=== PATIENT | female | born 1955 | race American Indian/Alaskan Native ===

== ENCOUNTER 2017-07-21 21:43 | Inpatient (IN) | payer OTHER ==
--- NOTE | 2017-07-21 22:17 | EDM.PDOC ---
ED HPI GENERAL MEDICAL PROBLEM - General Chief Complaint: Neuro Symptoms/Deficits Stated Complaint: PITO ROJAS Time Seen by Provider: 07/21/17 22:06 Source of Information: Reports: EMS, Family History Limitations: Reports: Altered Mental Status - History of Present Illness INITIAL COMMENTS - FREE TEXT/NARRATIVE: This is a 62-year-old female. Apparently the ambulance was called because the patient became unresponsive to her family. The history is very sketchy and if I understand correctly the patient was having pain today she has fibromyalgia and she is on hydrocodone and Lyrica and she was taking her medicines today according to the EMS crew and then this evening she became unresponsive and they thought she was having a stroke. Apparently they called a helicopter to come and get her but it was easier for them to bring her to us and to have a helicopter transport her. The patient is not able to give any history whatsoever. She will open her eyes, localizes to pain and moans. With a GCS of 11. She has an open airway and is breathing without difficulty. Her breath sounds are equal. She moves her head without difficulty. 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 And she will flex her legs to pain and roll in the bed to get away from the pain. He did give her Narcan when she arrived and it seemed to wake her up some but not completely. We also checked a blood sugar was 205. Pulse ox when she arrived without oxygen has been running 95-98% on room air. Family history arrived the indicated. She is an insulin-dependent diabetic. She has a lot of nerve pain due to her diabetes as well. She also has a history of COPD and she still smokes. Apparently this morning she was more coherent with the family and they were able to ask her questions and she would answer. But over the last 3 hours the granddaughter states she has been less interactive and been moaning the entire time. She did eat today and she did go on a drive with the granddaughter and was interactive during that time but lethargic. - Related Data Allergies Allergy/AdvReac Type Severity Reaction Status Date / Time No Known Allergies Allergy Verified 07/21/17 22:06 Home Meds: Home Meds DULoxetine HCl [Duloxetine HCl] 60 mg PO DAILY 07/21/17 [History] Erythromycin Base [Erythromycin 0.5% Ophth Oint] 1 dose EYERT BEDTIME 07/21/17 [ History] Hydrocodone/Acetaminophen [Hydrocodon-Acetaminophen 5-325] 1 tab PO Q6HR PRN [History] Insulin Aspart [Novolog Flexpen] 07/21/17 [History] Insulin Detemir [Levemir Flextouch] 07/21/17 [History] Lisinopril [Prinivil] 2.5 mg PO DAILY 07/21/17 [History] Pregabalin [Lyrica] 300 mg PO DAILY 07/21/17 [History] hydrOXYzine Pamoate [Hydroxyzine Pamoate] 50 mg PO BEDTIME 07/21/17 [History] Past Medical History - Past Health History Medical/Surgical History: Denies Medical/Surgical History Gastrointestinal History: Reports: Cholelithiasis 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: Endocrine/Metabolic History: Reports: Diabetes, Type II Other Dermatologic History: Allergy to sun - Past Surgical History GI Surgical History: Reports: Cholecystectomy Social & Family History - Tobacco Use Smoking Status *Q: Current Every Day Smoker Years of Tobacco use: 25 Packs/Tins Daily: 1 - Caffeine Use Caffeine Use: Reports: Coffee - Recreational Drug Use Recreational Drug Use: No ED ROS GENERAL - Review of Systems Review Of Systems: Unable To Obtain ED EXAM, NEURO - Physical Exam Exam: See Below Exam Limited By: Altered Mental Status General Appearance: Obtunded Eye Exam: Bilateral Eye: Other (2 pills are enlarged and they're sluggishly reactive, the right cornea has a pterygium noted, she will move away from me touching her face by turning her face) Ears: Normal External Exam, Normal Canal, Normal TMs Nose: Normal Inspection Throat/Mouth: Normal Inspection, No Airway Compromise, Other (She will not open her mouth to command) Head Exam: Normocephalic Neck: Supple, Other (She moves her neck spontaneously does not appear to have any tenderness or avoidance of palpation of her neck) Respiratory/Chest: No Respiratory Distress, Lungs Clear, Normal Breath Sounds Cardiovascular: Regular Rate, Rhythm, No Murmur GI/Abdominal: Soft, Non-Tender Neurological: Other (GCS is 11) Back Exam: Normal Inspection Extremities: Normal Inspection, Other (The patient is now sitting up and the family is here interacting with her she is moving all 4 extremities equally both her arms and her legs that she sitting up) Psychiatric: Other (Patient appears to be restless a little bit agitated and she moans) Skin Exam: Warm, Dry EKG INTERPRETATION EKG Date: 07/21/17 Time: 10:03 EKG Interpretation Comments: EKG shows a sinus rhythm there is no acute ST or T wave changes there is no suggestion of ischemia noted she does have a wandering baseline however Course - Vital Signs Last Recorded V/S: Last Vital Signs Temp 98.5 F 07/21/17 21:56 Pulse 88 07/21/17 21:56 Resp 18 07/21/17 21:56 BP 142/88 H 07/21/17 21:56 Pulse Ox 95 07/21/17 21:56 - Orders/Labs/Meds Orders: Active Orders 24 hr Category Date Time Status EKG 12 Lead [EKG Documentation Completion] [RC] STAT Care 07/21/17 22:11 Active Chest 2V [CR] Stat Exams 07/21/17 22:09 Taken Head wo Cont [CT] Stat Exams 07/21/17 22:04 Taken CULTURE BLOOD [BC] Stat Lab 07/21/17 22:53 Received CULTURE BLOOD [BC] Stat Lab 07/21/17 22:59 Received Blood Culture x2 Reflex Set [OM.PC] Stat Oth 07/21/17 22:34 Ordered Labs: Laboratory Tests 07/21/17 07/21/17 07/21/17 Range/Units 22:04 22:04 22:04 WBC 7.43 (3.98-10.04) K/mm3 RBC 4.13 (3.98-5.22) M/mm3 Hgb 12.5 (11.2-15.7) gm/L Hct 37.4 (34.1-44.9) % MCV 90.6 (79.4-94.8) fl MCH 30.3 (25.6-32.2) pg MCHC 33.4 (32.2-35.5) g/dl RDW Std Deviation 42.9 (36.4-46.3) fL Plt Count 204 (182-369) K/mm3 MPV 9.6 (9.4-12.3) fl Neut % (Auto) 73.7 H (34.0-71.1) % Lymph % (Auto) 18.4 L (19.3-51.7) % [place] % (Auto) 5.2 (4.7-12.5) % Eos % (Auto) 1.9 (0.7-5.8) Baso % (Auto) 0.7 (0.1-1.2) % Neut # (Auto) 5.47 (1.56-6.13) K/mm3 Lymph # (Auto) 1.37 (1.18-3.74) K/mm3 [place] # (Auto) 0.39 H (0.24-0.36) K/mm3 Eos # (Auto) 0.14 (0.04-0.36) K/mm3 Baso # (Auto) 0.05 (0.01-0.08) K/mm3 PT 9.9 (8.0-13.0) SECONDS INR 0.91 Puncture Site ABG pH (7.35-7.45) ABG pCO2 (35.0-45.0) mmHg ABG pO2 (80.0-100.0) mmHg ABG HCO3 (22.0-26.0) meq/L ABG O2 Saturation (96.0-97.0) % ABG Base Excess (-2-2.0) A-a Gradient mmHg O2 Delivery Device FiO2 (21.00-100.00) % Sodium 143 (136-145) mEq/L Potassium 4.0 (3.5-5.1) mEq/L Chloride 109 H (98-107) mEq/L Carbon Dioxide 24 (21-32) mEq/L Anion Gap 14.0 (5-15) BUN 11 (7-18) mg/dL Creatinine 0.9 (0.55-1.02) mg/dL Est Cr Clr Drug Dosing TNP Estimated GFR (MDRD) > 60 (>60) mL/min BUN/Creatinine Ratio 12.2 L (14-18) Glucose 227 H (80-115) mg/dL POC Glucose (80-115) mg/dL Lactic Acid (0.4-2.0) mmol/L Calcium 9.1 (8.5-10.1) mg/dL Total Bilirubin 0.3 (0.2-1.0) mg/dL AST 27 (15-37) U/L ALT 30 (14-59) U/L Alkaline Phosphatase 159 H (46-116) U/L Troponin I (0.00-0.056) ng/mL C-Reactive Protein (<1.0) mg/dL Total Protein 8.5 H (6.4-8.2) g/dl Albumin 3.3 L (3.4-5.0) g/dl Globulin 5.2 gm/dL Albumin/Globulin Ratio 0.6 L (1-2) Urine Color (Yellow) Urine Appearance (Clear) Urine pH (5.0-8.0) Ur Specific Nice (1.005-1.030) Urine Protein (Negative) Urine Glucose (UA) (Negative) Urine Ketones (Negative) Urine Occult Blood (Negative) Urine Nitrite (Negative) Urine Bilirubin (Negative) Urine Urobilinogen (0.2-1.0) Ur Leukocyte Esterase (Negative) Urine RBC (0-5) /hpf Urine WBC (0-5) /hpf Ur Epithelial Cells (0-5) /hpf Urine Bacteria (FEW) /hpf Urine Mucus (FEW) /hpf Urine Opiates Screen (NEGATIVE) Ur Buprenorphine Scrn (NEGATIVE) Ur Oxycodone Screen (NEGATIVE) Urine Methadone Screen (NEGATIVE) Ur Propoxyphene Screen (NEGATIVE) Ur Barbiturates Screen (NEGATIVE) Ur Tricyclics Screen (NEGATIVE) Ur Phencyclidine Scrn (NEGATIVE) Ur Amphetamine Screen (NEGATIVE) U Methamphetamines Scrn (NEGATIVE) U Benzodiazepines Scrn (NEGATIVE) U Cocaine Metab Screen (NEGATIVE) U Marijuana (THC) Screen (NEGATIVE) 07/21/17 07/21/17 07/21/17 Range/Units 22:04 22:04 22:05 WBC (3.98-10.04) K/mm3 RBC (3.98-5.22) M/mm3 Hgb (11.2-15.7) gm/L Hct (34.1-44.9) % MCV (79.4-94.8) fl MCH (25.6-32.2) pg MCHC (32.2-35.5) g/dl RDW Std Deviation (36.4-46.3) fL Plt Count (182-369) K/mm3 MPV (9.4-12.3) fl Neut % (Auto) (34.0-71.1) % Lymph % (Auto) (19.3-51.7) % [place] % (Auto) (4.7-12.5) % Eos % (Auto) (0.7-5.8) Baso % (Auto) (0.1-1.2) % Neut # (Auto) (1.56-6.13) K/mm3 Lymph # (Auto) (1.18-3.74) K/mm3 [place] # (Auto) (0.24-0.36) K/mm3 Eos # (Auto) (0.04-0.36) K/mm3 Baso # (Auto) (0.01-0.08) K/mm3 PT (8.0-13.0) SECONDS INR Puncture Site ABG pH (7.35-7.45) ABG pCO2 (35.0-45.0) mmHg ABG pO2 (80.0-100.0) mmHg ABG HCO3 (22.0-26.0) meq/L ABG O2 Saturation (96.0-97.0) % ABG Base Excess (-2-2.0) A-a Gradient mmHg O2 Delivery Device FiO2 (21.00-100.00) % Sodium (136-145) mEq/L Potassium (3.5-5.1) mEq/L Chloride (98-107) mEq/L Carbon Dioxide (21-32) mEq/L Anion Gap (5-15) BUN (7-18) mg/dL Creatinine (0.55-1.02) mg/dL Est Cr Clr Drug Dosing Estimated GFR (MDRD) (>60) mL/min BUN/Creatinine Ratio (14-18) Glucose (80-115) mg/dL POC Glucose 205 H (80-115) mg/dL Lactic Acid (0.4-2.0) mmol/L Calcium (8.5-10.1) mg/dL Total Bilirubin (0.2-1.0) mg/dL AST (15-37) U/L ALT (14-59) U/L Alkaline Phosphatase (46-116) U/L Troponin I < 0.017 (0.00-0.056) ng/mL C-Reactive Protein 2.0 H* (<1.0) mg/dL Total Protein (6.4-8.2) g/dl Albumin (3.4-5.0) g/dl Globulin gm/dL Albumin/Globulin Ratio (1-2) Urine Color (Yellow) Urine Appearance (Clear) Urine pH (5.0-8.0) Ur Specific Nice (1.005-1.030) Urine Protein (Negative) Urine Glucose (UA) (Negative) Urine Ketones (Negative) Urine Occult Blood (Negative) Urine Nitrite (Negative) Urine Bilirubin (Negative) Urine Urobilinogen (0.2-1.0) Ur Leukocyte Esterase (Negative) Urine RBC (0-5) /hpf Urine WBC (0-5) /hpf Ur Epithelial Cells (0-5) /hpf Urine Bacteria (FEW) /hpf Urine Mucus (FEW) /hpf Urine Opiates Screen (NEGATIVE) Ur Buprenorphine Scrn (NEGATIVE) Ur Oxycodone Screen (NEGATIVE) Urine Methadone Screen (NEGATIVE) Ur Propoxyphene Screen (NEGATIVE) Ur Barbiturates Screen (NEGATIVE) Ur Tricyclics Screen (NEGATIVE) Ur Phencyclidine Scrn (NEGATIVE) Ur Amphetamine Screen (NEGATIVE) U Methamphetamines Scrn (NEGATIVE) U Benzodiazepines Scrn (NEGATIVE) U Cocaine Metab Screen (NEGATIVE) U Marijuana (THC) Screen (NEGATIVE) 07/21/17 07/21/17 07/21/17 Range/Units 22:35 22:53 23:00 WBC (3.98-10.04) K/mm3 RBC (3.98-5.22) M/mm3 Hgb (11.2-15.7) gm/L Hct (34.1-44.9) % MCV (79.4-94.8) fl MCH (25.6-32.2) pg MCHC (32.2-35.5) g/dl RDW Std Deviation (36.4-46.3) fL Plt Count (182-369) K/mm3 MPV (9.4-12.3) fl Neut % (Auto) (34.0-71.1) % Lymph % (Auto) (19.3-51.7) % [place] % (Auto) (4.7-12.5) % Eos % (Auto) (0.7-5.8) Baso % (Auto) (0.1-1.2) % Neut # (Auto) (1.56-6.13) K/mm3 Lymph # (Auto) (1.18-3.74) K/mm3 [place] # (Auto) (0.24-0.36) K/mm3 Eos # (Auto) (0.04-0.36) K/mm3 Baso # (Auto) (0.01-0.08) K/mm3 PT (8.0-13.0) SECONDS INR Puncture Site Rt brachial ABG pH 7.35 (7.35-7.45) ABG pCO2 43.6 (35.0-45.0) mmHg ABG pO2 66.0 L (80.0-100.0) mmHg ABG HCO3 23.7 (22.0-26.0) meq/L ABG O2 Saturation 96.1 (96.0-97.0) % ABG Base Excess -1.4 (-2-2.0) A-a Gradient 14 mmHg O2 Delivery Device Room air FiO2 21.00 (21.00-100.00) % Sodium (136-145) mEq/L Potassium (3.5-5.1) mEq/L Chloride (98-107) mEq/L Carbon Dioxide (21-32) mEq/L Anion Gap (5-15) BUN (7-18) mg/dL Creatinine (0.55-1.02) mg/dL Est Cr Clr Drug Dosing Estimated GFR (MDRD) (>60) mL/min BUN/Creatinine Ratio (14-18) Glucose (80-115) mg/dL POC Glucose 224 H (80-115) mg/dL Lactic Acid 0.9 (0.4-2.0) mmol/L Calcium (8.5-10.1) mg/dL Total Bilirubin (0.2-1.0) mg/dL AST (15-37) U/L ALT (14-59) U/L Alkaline Phosphatase (46-116) U/L Troponin I (0.00-0.056) ng/mL C-Reactive Protein (<1.0) mg/dL Total Protein (6.4-8.2) g/dl Albumin (3.4-5.0) g/dl Globulin gm/dL Albumin/Globulin Ratio (1-2) Urine Color (Yellow) Urine Appearance (Clear) Urine pH (5.0-8.0) Ur Specific Nice (1.005-1.030) Urine Protein (Negative) Urine Glucose (UA) (Negative) Urine Ketones (Negative) Urine Occult Blood (Negative) Urine Nitrite (Negative) Urine Bilirubin (Negative) Urine Urobilinogen (0.2-1.0) Ur Leukocyte Esterase (Negative) Urine RBC (0-5) /hpf Urine WBC (0-5) /hpf Ur Epithelial Cells (0-5) /hpf Urine Bacteria (FEW) /hpf Urine Mucus (FEW) /hpf Urine Opiates Screen (NEGATIVE) Ur Buprenorphine Scrn (NEGATIVE) Ur Oxycodone Screen (NEGATIVE) Urine Methadone Screen (NEGATIVE) Ur Propoxyphene Screen (NEGATIVE) Ur Barbiturates Screen (NEGATIVE) Ur Tricyclics Screen (NEGATIVE) Ur Phencyclidine Scrn (NEGATIVE) Ur Amphetamine Screen (NEGATIVE) U Methamphetamines Scrn (NEGATIVE) U Benzodiazepines Scrn (NEGATIVE) U Cocaine Metab Screen (NEGATIVE) U Marijuana (THC) Screen (NEGATIVE) 07/21/17 07/21/17 Range/Units 23:20 23:20 WBC (3.98-10.04) K/mm3 RBC (3.98-5.22) M/mm3 Hgb (11.2-15.7) gm/L Hct (34.1-44.9) % MCV (79.4-94.8) fl MCH (25.6-32.2) pg MCHC (32.2-35.5) g/dl RDW Std Deviation (36.4-46.3) fL Plt Count (182-369) K/mm3 MPV (9.4-12.3) fl Neut % (Auto) (34.0-71.1) % Lymph % (Auto) (19.3-51.7) % [place] % (Auto) (4.7-12.5) % Eos % (Auto) (0.7-5.8) Baso % (Auto) (0.1-1.2) % Neut # (Auto) (1.56-6.13) K/mm3 Lymph # (Auto) (1.18-3.74) K/mm3 [place] # (Auto) (0.24-0.36) K/mm3 Eos # (Auto) (0.04-0.36) K/mm3 Baso # (Auto) (0.01-0.08) K/mm3 PT (8.0-13.0) SECONDS INR Puncture Site ABG pH (7.35-7.45) ABG pCO2 (35.0-45.0) mmHg ABG pO2 (80.0-100.0) mmHg ABG HCO3 (22.0-26.0) meq/L ABG O2 Saturation (96.0-97.0) % ABG Base Excess (-2-2.0) A-a Gradient mmHg O2 Delivery Device FiO2 (21.00-100.00) % Sodium (136-145) mEq/L Potassium (3.5-5.1) mEq/L Chloride (98-107) mEq/L Carbon Dioxide (21-32) mEq/L Anion Gap (5-15) BUN (7-18) mg/dL Creatinine (0.55-1.02) mg/dL Est Cr Clr Drug Dosing Estimated GFR (MDRD) (>60) mL/min BUN/Creatinine Ratio (14-18) Glucose (80-115) mg/dL POC Glucose (80-115) mg/dL Lactic Acid (0.4-2.0) mmol/L Calcium (8.5-10.1) mg/dL Total Bilirubin (0.2-1.0) mg/dL AST (15-37) U/L ALT (14-59) U/L Alkaline Phosphatase (46-116) U/L Troponin I (0.00-0.056) ng/mL C-Reactive Protein (<1.0) mg/dL Total Protein (6.4-8.2) g/dl Albumin (3.4-5.0) g/dl Globulin gm/dL Albumin/Globulin Ratio (1-2) Urine Color Yellow (Yellow) Urine Appearance Clear (Clear) Urine pH 7.0 (5.0-8.0) Ur Specific Nice 1.020 (1.005-1.030) Urine Protein 2+ H (Negative) Urine Glucose (UA) 2+ H (Negative) Urine Ketones Negative (Negative) Urine Occult Blood Negative (Negative) Urine Nitrite Negative (Negative) Urine Bilirubin Negative (Negative) Urine Urobilinogen 1.0 (0.2-1.0) Ur Leukocyte Esterase Negative (Negative) Urine RBC Not seen (0-5) /hpf Urine WBC 0-5 (0-5) /hpf Ur Epithelial Cells 0-5 (0-5) /hpf Urine Bacteria Not seen (FEW) /hpf Urine Mucus Not seen (FEW) /hpf Urine Opiates Screen Negative (NEGATIVE) Ur Buprenorphine Scrn Negative (NEGATIVE) Ur Oxycodone Screen Negative (NEGATIVE) Urine Methadone Screen Negative (NEGATIVE) Ur Propoxyphene Screen Negative (NEGATIVE) Ur Barbiturates Screen Negative (NEGATIVE) Ur Tricyclics Screen Negative (NEGATIVE) Ur Phencyclidine Scrn Negative (NEGATIVE) Ur Amphetamine Screen Negative (NEGATIVE) U Methamphetamines Scrn Negative (NEGATIVE) U Benzodiazepines Scrn Presumptive positive H (NEGATIVE) U Cocaine Metab Screen Negative (NEGATIVE) U Marijuana (THC) Screen Negative (NEGATIVE) Meds: Medications Discontinued Medications Generic Name Dose Route Start Last Admin Trade Name Freq PRN Reason Stop Dose Admin Naloxone HCl 0.1 mg 07/21/17 22:43 07/21/17 22:55 Narcan IVPUSH 07/21/17 22:44 Not Given ONETIME ONE Naloxone HCl 0.4 mg 07/21/17 21:48 07/21/17 21:48 Narcan IVPUSH 07/21/17 21:49 0.4 mg ONETIME ONE Administration Ondansetron HCl Confirm 07/21/17 22:25 07/21/17 22:56 Zofran Administered 07/21/17 22:26 Not Given Dose 4 mg .ROUTE .STK-MED ONE Ondansetron HCl 4 mg 07/21/17 22:43 07/21/17 22:22 Zofran IVPUSH 07/21/17 22:44 4 mg ONETIME ONE Administration - Radiology Interpretation CT Results Date: 07/21/17 (CT scan shows no intracranial mass effect no hemorrhage and no acute infarct) - Re-Assessments/Exams Free Text/Narrative Re-Assessment/Exam: 07/21/17 23:32 The patient is resting peacefully. He was noted that her blood gas on room air showed a PO2 of 66 with O2 sat of 96 therefore we put her on a couple liters of oxygen by nasal cannula. I spoke to the granddaughter regarding our findings thus far and she does not appear to have any pneumonia. She is about the same responsiveness as she was when she came in but she is not agitated but resting peacefully. My concern is whether or not she might have overdosed on the Lyrica which is supportive therapy only. She does exhibit the loss of coordination the drowsiness or lethargy the moments of unresponsiveness she's not had any diarrhea and I cannot tell about her double vision though at times while look at her eyes the do appear to have some disconjugate gaze. Other than moaning the patient has not tried to speak so I cannot tell about the dysarthria that occurs with gabapentin overdose. 07/22/17 00:10 I spoke to the family regarding the toxicology report and the rest of the lab work. It is my impression that her altered mental status could be related to the benzodiazepines found in her urine drug screen as well as the Lyrica. I did speak to Dr. Alfred about the patient's presentation and lab work and she will admit the patient for further evaluation and treatment. We will place the patient on MedSurg telemetry with neuro checks. 07/22/17 00:22 After talking it over the family states the patient doesn't take benzodiazepines even though was found in her urine drug screen. This leads me to believe that the family doesn't know very well what meds she actually takes her doesn't. I indicated to them that we will put the patient in the hospital to monitor her and hopefully will determine what is the reason for her unresponsiveness. Departure - Departure Time of Disposition: 00:12 Disposition: Admitted As Inpatient 65 Condition: Serious Clinical Impression: Insulin dependent diabetes mellitus, Neuropathy, Chemical dependency Altered mental status, unspecified Qualifiers: Altered mental status type: somnolence Qualified Code(s): R40.0 - Somnolence COPD (chronic obstructive pulmonary disease) Qualifiers: COPD type: emphysema Emphysema type: unspecified Qualified Code(s): J43.9 - Emphysema, unspecified - Discharge Information Referrals: PCP,None [Primary Care Provider] - Forms: ED Department Discharge Additional Instructions: I spoke to Dr. Alfred regarding the patient and she will admit the patient to MedSurg telemetry with neuro checks ED Communication - ED Communication Date/Time Date: 07/22/17 Time Called: 00:15 - Discussed Case With (1) Discussed Case With (1): Admitting Provider Person/s Notified (1): Ale Alfred (She will admit the patient) - My Orders Last 24 Hours: My Active Orders 07/21/17 22:04 Head wo Cont [CT] Stat 07/21/17 22:09 Chest 2V [CR] Stat 07/21/17 22:11 EKG 12 Lead [EKG Documentation Completion] [RC] STAT 07/21/17 22:34 Blood Culture x2 Reflex Set [OM.PC] Stat 07/21/17 22:53 CULTURE BLOOD [BC] Stat 07/21/17 22:59 CULTURE BLOOD [BC] Stat - Assessment/Plan Last 24 Hours: My Active Orders 07/21/17 22:04 Head wo Cont [CT] Stat 07/21/17 22:09 Chest 2V [CR] Stat 07/21/17 22:11 EKG 12 Lead [EKG Documentation Completion] [RC] STAT 07/21/17 22:34 Blood Culture x2 Reflex Set [OM.PC] Stat 07/21/17 22:53 CULTURE BLOOD [BC] Stat 07/21/17 22:59 CULTURE BLOOD [BC] Stat
[2017-07-21] MEDS ORDERED: Ondansetron 4 MG/2 ML SDV ONE (22:25)
[2017-07-21] MEDS ORDERED: Naloxone 2 MG/2 ML Syringe IVPUSH ONE (22:43)
[2017-07-21] MEDS ORDERED: Ondansetron 4 MG/2 ML SDV IVPUSH ONE (22:43)
[2017-07-22] MEDS: Insulin Aspart 100 Units/ML 3 ML Pen SUBCUT SCH ×5 (05:28→23:09)
[2017-07-22] MEDS: Sodium Chloride 0.9% 1,000 ML IV SCH ×2 (05:30→18:49)
--- NOTE | 2017-07-22 06:46 | PCM.HP ---
H&P History of Present Illness - General Date of Service: 07/22/17 Admit Problem/Dx: Admission Diagnosis/Problem Admission Diagnosis/Problem Altered mental status Source of Information: Provider History Limitations: Reports: No Limitations - History of Present Illness Initial Comments - Free Text/Narative: 62 year old female who looks 30 years older than her age presents with mental status change. 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 Her family had a concern that she may have had a CVA, she was brought into the ED because of unresponsiveness. The evaluation in the ED revealed a GCS 11, narcan was given with some improvement of MS. Laboratory results are remarkable for presumptive positive for benzodiazepine which is not on her list of medications. Reportedly she takes above and beyond the recommend dose of Lyrica for neuropathy. BS have been elevated, but are not profoundly high; BS on presentation to the ED 205. She is hemodynamically stable, and will be admitted to MS telemetry for additional evaluation as well as treatment as indicated. Onset of Symptoms: Reports: Unknown/Unsure Duration of Symptoms: Reports: Hour(s):, Getting Worse Location: Reports: Generalized Quality: Reports: Other (unknown) Severity: Moderate Improves with: Reports: None Worsens with: Reports: None Context: Reports: Other (unknown) Associated Symptoms: Reports: Confusion, Weakness - Related Data Allergies/Adverse Reactions: Allergies Allergy/AdvReac Type Severity Reaction Status Date / Time No Known Allergies Allergy Verified 07/21/17 22:06 Home Medications: Home Meds DULoxetine HCl [Duloxetine HCl] 60 mg PO DAILY 07/21/17 [History] Erythromycin Base [Erythromycin 0.5% Ophth Oint] 1 dose EYERT BEDTIME 07/21/17 [ History] Hydrocodone/Acetaminophen [Hydrocodon-Acetaminophen 5-325] 1 tab PO Q6HR PRN [History] Insulin Aspart [Novolog Flexpen] 07/21/17 [History] Insulin Detemir [Levemir Flextouch] 07/21/17 [History] Lisinopril [Prinivil] 2.5 mg PO DAILY 07/21/17 [History] Pregabalin [Lyrica] 300 mg PO DAILY 07/21/17 [History] hydrOXYzine Pamoate [Hydroxyzine Pamoate] 50 mg PO BEDTIME 07/21/17 [History] Past Medical History - Past Health History Medical/Surgical History: Denies Medical/Surgical History Gastrointestinal History: Reports: Cholelithiasis 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 several scars to other healed skin issues. - Past Surgical History Cardiovascular Surgical History: Reports: None GI Surgical History: Reports: Cholecystectomy Female Surgical History: Reports: None Endocrine Surgical History: Reports: None Dermatological Surgical History: Reports: None Social & Family History - Family History Family Medical History: Unobtainable - Tobacco Use Smoking Status *Q: Current Every Day Smoker Years of Tobacco use: 20 Packs/Tins Daily: 1 Used Tobacco, but Quit: No Second Hand Smoke Exposure: No - Caffeine Use Caffeine Use: Reports: Other Caffeine Use Comment: unknown - Recreational Drug Use Recreational Drug Use: No H&P Review of Systems - Review of Systems: Review Of Systems: Unable To Obtain Exam - Exam Exam: See Below - Vital Signs Vital Signs: Last Vital Signs Temp 36.6 C 07/22/17 03:53 Pulse 91 07/22/17 03:53 Resp 18 07/22/17 03:53 BP 125/77 07/22/17 03:53 Pulse Ox 100 07/22/17 03:53 Weight: 72.802 kg - Exam Quality Assessment: Supplemental Oxygen General: Lethargic HEENT: Conjunctiva Clear, Pupils Equal, Pupils Reactive, PERRLA Lungs: Normal Respiratory Effort, Decreased Breath Sounds Cardiovascular: Regular Rate, Regular Rhythm GI/Abdominal Exam: Normal Bowel Sounds, Soft, Non-Tender, No Organomegaly, No Distention (Female) Exam: Deferred Rectal (Female) Exam: Deferred Back Exam: Normal Inspection Extremities: Normal Inspection, Non-Tender Skin: Warm Neurological: Cranial Nerves Intact Neuro Extensive - Mental Status: Withdraws to Pain Neuro Extensive - Motor, Sensory, Reflexes: CN II-XII Intact Psychiatric: Other (lethargic) - Patient Data Lab Results Last 24 hrs: Laboratory Results - last 24 hr 07/22/17 07/22/17 Range/Units 01:21 05:23 POC Glucose 321 H 357 H (80-115) mg/dL Result Diagrams: 07/21/17 22:04 07/21/17 22:04 *Q Meaningful Use (ADM) - VTE *Q VTE Criteria *Q: - Stroke *Q Stroke Criteria *Q: - AMI *Q AMI Criteria *Q: - Problem List (1) Tobacco dependence SNOMED Code(s): 25070926 ICD Code: F17.200 - NICOTINE DEPENDENCE, UNSPECIFIED, UNCOMPLICATED Status : Acute Current Visit: Yes (2) Fibromyalgia SNOMED Code(s): 426456642 ICD Code: M79.7 - FIBROMYALGIA Status: Acute Current Visit: Yes (3) Narcotic dependence SNOMED Code(s): 73716171 ICD Code: F11.20 - OPIOID DEPENDENCE, UNCOMPLICATED Status: Acute Current Visit: Yes (4) Altered mental status, unspecified SNOMED Code(s): 421737855 ICD Code: R41.82 - ALTERED MENTAL STATUS, UNSPECIFIED Status: Acute Current Visit: Yes Qualifiers: Altered mental status type: somnolence Qualified Code(s): R40.0 - Somnolence (5) COPD (chronic obstructive pulmonary disease) SNOMED Code(s): 36527437 ICD Code: J44.9 - CHRONIC OBSTRUCTIVE PULMONARY DISEASE, UNSPECIFIED Status : Acute Current Visit: Yes Qualifiers: COPD type: emphysema Emphysema type: unspecified Qualified Code(s): J43.9 - Emphysema, unspecified (6) Chemical dependency SNOMED Code(s): 033749329 ICD Code: F19.20 - OTHER PSYCHOACTIVE SUBSTANCE DEPENDENCE, UNCOMPLICATED Status: Acute Current Visit: Yes (7) Insulin dependent diabetes mellitus SNOMED Code(s): 83601467 ICD Code: E11.9 - TYPE 2 DIABETES MELLITUS WITHOUT COMPLICATIONS; Z79.4 - JAIL (CURRENT) USE OF INSULIN Status: Acute Current Visit: Yes (8) Neuropathy SNOMED Code(s): 821878743 ICD Code: G62.9 - POLYNEUROPATHY, UNSPECIFIED Status: Acute Current Visit : Yes Problem List Initiated/Reviewed/Updated: Yes Orders Last 24hrs: Active Orders 24 hr Category Date Time Status Patient Status [ADT] Routine ADT 07/22/17 00:34 Active Aspiration Precautions [RC] , Care 07/22/17 03:13 Active Bedrest [RC] , Care 07/22/17 02:56 Active Blood Glucose Check, Bedside [RC] 00,06,12,18 Care 07/22/17 06:00 Active EKG Documentation Completion [RC] ASDIRECTED Care 07/22/17 07:00 Active HOB [Head of Bed Elevation] [RC] ASDIRECTED Care 07/22/17 03:02 Active Oxygen Therapy [RC] ASDIRECTED Care 07/22/17 04:48 Active NPO Now [Nothing per Oral Now Diet] [DIET] Diet 07/22/17 Breakfast Active BASIC METABOLIC PANEL,BMP [CHEM] Routine Lab 07/22/17 05:00 Ordered CBC WITH AUTO DIFF [HEME] Routine Lab 07/22/17 05:00 Ordered CRP [C-REACTIVE PROTEIN] [CHEM] Routine Lab 07/22/17 05:00 Ordered MAGNESIUM [CHEM] Routine Lab 07/22/17 05:00 Ordered TROPONIN I [CHEM] Routine Lab 07/22/17 05:00 Ordered Insulin Aspart [NovoLOG] Med 07/22/17 06:00 Active See Protocol SUBCUT QIDACANDBED Sodium Chloride 0.9% [Normal Saline] 1,000 ml Med 07/22/17 03:00 Active IV ASDIRECTED Code Status [Resuscitation Status] Routine Resus Stat 07/22/17 02:55 Ordered EKG 12 Lead [EK] Routine Ther 07/22/17 07:00 Ordered Medication Orders Sodium Chloride (Normal Saline) 1,000 mls @ 75 mls/hr IV ASDIRECTED [facility] Last Admin: 07/22/17 05:30 Dose: 75 mls/hr Insulin Aspart (Novolog) 0 unit SUBCUT QIDACANDBED [facility] PRN Reason: Protocol Last Admin: 07/22/17 05:28 Dose: 5 units Assessment/Plan Comment:: Impression: Altered mental status, unspecified History of Lyrica and narcotic dependence Query CVA Diabetes mellitus type 2 with complications Query HTN Hyperlipidemia Plan: Neuro checks CVA protocol Aspiration precautions Seizure precautions Supportive care Narcan Tobacco replacement DM mgt and education SW/CM consult for assistance with needs PT/OT consults
[2017-07-22] MEDS ORDERED: Ondansetron 4 MG/2 ML SDV IVPUSH PRN (06:54)
[2017-07-22] MEDS ORDERED: 50% Dextrose in Water 50 ML Syringe IVPUSH PRN (06:58)
[2017-07-22] MEDS: DULoxetine 30 MG Cap PO SCH (09:13)
--- NOTE | 2017-07-22 12:23 | CR ---
Chest: Frontal view of the chest was obtained. Comparison: Prior chest CT of 09/26/16 and chest x-ray of 09/26/16. Mild parenchymal density is noted within the right upper lung. Findings have improved from prior exam presumably representing treated neoplasm. Mild increased density within right lung base is seen. Left lung is clear. Heart size and mediastinum are within normal limits and stable from previous exam. Bony structures appear within normal limits for the patient's age. Impression: 1. 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 2. Mild increased density within right lung base. As noted above, differential includes small area of pneumonia, atelectasis as well as interval appearance of additional neoplastic area. Diagnostic code #3
[2017-07-22] MEDS ORDERED: Scopolamine 1.5 MG Transdermal Patch TOP ONE (17:54)
[2017-07-22] MEDS: HYDROmorphone 0.5 MG/0.5 ML Syringe IVPUSH PRN (23:27)
[2017-07-23] MEDS: Insulin Aspart 100 Units/ML 3 ML Pen SUBCUT SCH ×4 (07:53→22:39)
[2017-07-23] MEDS: Sodium Chloride 0.9% 1,000 ML IV SCH (08:20)
--- NOTE | 2017-07-23 08:33 | CR ---
Chest: Two views of the chest were obtained. Comparison: Prior chest x-ray of 07/21/17. Parenchymal scarring is noted within the upper right chest which appears stable from prior exam. Lungs otherwise are clear. Heart size is normal. Mild tortuosity of the thoracic aorta is seen. Impression: 1. Parenchymal scarring within the upper right chest which is stable from most recent exam. 2. Nothing acute is appreciated. Diagnostic code #2
--- NOTE | 2017-07-23 08:33 | CT ---
Head CT Technique: Multiple axial sections through the brain were obtained. Intravenous contrast was not utilized. Comparison: Previous head CT exam of 05/04/15. Findings: Ventricles along with basal cisterns and sulci over the convexities are within normal limits for the patient's age. Equivocal low density area noted posteriorly within the right parietal region measuring approximately 2.0 cm. Minimal diminished density is noted within the periventricular white matter compatible with small vessel ischemic demyelination change. No other abnormal parenchymal densities are seen. No evidence of intracranial hemorrhage. No midline shift or mass effect is seen. Bone window settings were reviewed which shows no acute sinus findings. No acute calvarial abnormality is noted. Lucent lesions seen within the posterior left frontal skull which is stable from prior exam and felt to represent a benign lesion. Impression: 1. Equivocal abnormality within the posterior right parietal region. This appears as an interval change from previous exam. I believe an MRI study should be performed to exclude real parenchymal abnormality in this area. Contrast should be utilized if patient's creatinine is satisfactory. 2. Other incidental findings. Diagnostic code #9 I agree with preliminary report issued by [facility], additional finding as noted above for which MRI is recommended ([facility] preliminary report dictated on 07/21/17, 11:13 PM Central Time)
--- NOTE | 2017-07-23 10:37 | US ---
Carotid ultrasound: Duplex and color flow imaging was obtained of the carotid arteries. Comparison: No previous carotid imaging. Minimal plaque is identified on both sides within the carotid bulb. Velocity measurements Right side: CCA has a peak systolic velocity of 0.77 m/s. ICA has a peak systolic velocity of 0.85 m/s and peak end-diastolic velocity of 0.27 m/s. ECA has a peak systolic velocity of 0.87 m/s. Vertebral artery has a peak systolic velocity of 0.52 m/s. ICA/CCA ratio is 1.1. Left side: CCA has a peak systolic velocity of 0.91 m/s. ICA has a peak systolic velocity of 0.51 m/s and peak end-diastolic velocity of 0.21 m/s. ECA has a peak systolic velocity of 0.64 m/s. Vertebral artery has a peak systolic velocity of 0.40 m/s. ICA/CCA ratio is 0.6. Impression: 1. Minimal plaque on both sides. Velocity measurements are within normal limits. Diagnostic code #2
[2017-07-23] MEDS ORDERED: LORazepam 2 MG/ML MDV IVPUSH ONE (10:59)
[2017-07-23] MEDS: DULoxetine 30 MG Cap PO SCH (12:32)
[2017-07-23] MEDS: HYDROmorphone 0.5 MG/0.5 ML Syringe IVPUSH PRN (12:34)
[2017-07-23] MEDS: Acetaminophen/oxyCODONE 325-5 MG Tab PO PRN ×3 (13:53→22:48)
[2017-07-23] MEDS ORDERED: LORazepam 2 MG/ML MDV ONE (14:11)
[2017-07-23] MEDS ORDERED: Magnesium Oxide 400 MG Tab PO ONE (15:00)
[2017-07-23] MEDS ORDERED: Gadobenate Dimeglumine 529 MG/ML 15 ML SDV IVPUSH ONE (15:05)
--- NOTE | 2017-07-23 15:10 | PCM.PN ---
- General Info Date of Service: 07/23/17 Admission Dx/Problem (Free Text): Admission Diagnosis/Problem Admission Diagnosis/Problem Altered mental status Subjective Update: In to see Hope today. She is lying in bed. A&OX3. She denies any acute problems. Her biggest complaint is wrist and "plaza" pain. She reportedly fell on the ice recently and was transported to [facility]. She was found to have a fractured wrist and "plaza." Her family states she had a cast on her wrist until a few days ago. She was told that there was nothing they could do for her injured leg and needs to use caution when moving. I asked her why she believes she is in the hospital or what could have led up to this episode. She reports " I took too much Lyrica." She tells me she has had a similar episode in the past from taking too much Lyrica. She stated that her pain is uncontrolled at times and she needs it to go away. I asked if she is taking it to harm or kill herself and she adamantly denies this. I explained to her what her A1C was and how she will have problems with healing, neuropathy, and vision due to her uncontrolled diabetes. senior health educator is in to see her but she refuses to talk with her. Echo is obtained. Carotid ultrasound looks good. Labs ordered for AM. MRI was attempted and she refused early today. Will attempt to obtain MRI with some procedural sedation. Blood sugars have been elevated. Will continue long acting home insulin. Functional Status: Reports: Pain Controlled, Tolerating Diet, Ambulating, Urinating - Review of Systems General: Reports: No Symptoms. Denies: Fever, Weakness, Fatigue, Malaise HEENT: Reports: No Symptoms. Denies: Contact Lenses, Headaches, Post Nasal Drip , Sinus Congestion Pulmonary: Reports: No Symptoms. Denies: Shortness of Breath, Pleuritic Chest Pain, Cough, Sputum Cardiovascular: Reports: No Symptoms. Denies: Chest Pain, Palpitations, Dyspnea on Exertion, Edema Gastrointestinal: Reports: No Symptoms. Denies: Abdominal Pain, Constipation, Nausea, Vomiting Genitourinary: Denies: Dysuria, Frequency, Burning, Pain, Urgency Musculoskeletal: Reports: Joint Pain (wrist and knee (02/12)) Skin: Reports: No Symptoms Neurological: Reports: No Symptoms. Denies: Confusion, Dizziness, Headache, Numbness, Tingling, Trouble Speaking, Weakness, Change in Speech Psychiatric: Reports: No Symptoms. Denies: Confusion, Depression, Mood Lability , Anxiety - Patient Data Vitals - Most Recent: Last Vital Signs Temp 97.9 F 07/23/17 12:18 Pulse 86 07/23/17 12:18 Resp 18 07/23/17 12:18 BP 125/71 07/23/17 12:18 Pulse Ox 100 07/23/17 12:18 Weight - Most Recent: 158 lb 8 oz I&O - Last 24 Hours: Intake & Output 07/23/17 07/23/17 07/23/17 06:59 14:59 22:59 Intake Total 790 Output Total 1150 Balance -360 Lab Results Last 24 Hours: Laboratory Results - last 24 hr 07/22/17 07/22/17 07/22/17 Range/Units 06:49 17:36 23:07 WBC (3.98-10.04) K/mm3 RBC (3.98-5.22) M/mm3 Hgb (11.2-15.7) gm/L Hct (34.1-44.9) % MCV (79.4-94.8) fl MCH (25.6-32.2) pg MCHC (32.2-35.5) g/dl RDW Std Deviation (36.4-46.3) fL Plt Count (182-369) K/mm3 MPV (9.4-12.3) fl Neut % (Auto) (34.0-71.1) % Lymph % (Auto) (19.3-51.7) % [place] % (Auto) (4.7-12.5) % Eos % (Auto) (0.7-5.8) Baso % (Auto) (0.1-1.2) % Neut # (Auto) (1.56-6.13) K/mm3 Lymph # (Auto) (1.18-3.74) K/mm3 [place] # (Auto) (0.24-0.36) K/mm3 Eos # (Auto) (0.04-0.36) K/mm3 Baso # (Auto) (0.01-0.08) K/mm3 Sodium (136-145) mEq/L Potassium (3.5-5.1) mEq/L Chloride (98-107) mEq/L Carbon Dioxide (21-32) mEq/L Anion Gap (5-15) BUN (7-18) mg/dL Creatinine (0.55-1.02) mg/dL Est Cr Clr Drug Dosing mL/min Estimated GFR (MDRD) (>60) mL/min BUN/Creatinine Ratio (14-18) Glucose (80-115) mg/dL POC Glucose 283 H 278 H (80-115) mg/dL Hemoglobin A1c (4.50-6.20) % Calcium (8.5-10.1) mg/dL Magnesium (1.8-2.4) mg/dl C-Reactive Protein (<1.0) mg/dL TSH 3rd Generation 1.336 (0.358-3.74) uIU/mL 07/23/17 07/23/17 07/23/17 Range/Units 05:56 05:56 05:56 WBC 10.42 H (3.98-10.04) K/mm3 RBC 4.15 (3.98-5.22) M/mm3 Hgb 12.5 (11.2-15.7) gm/L Hct 38.8 (34.1-44.9) % MCV 93.5 (79.4-94.8) fl MCH 30.1 (25.6-32.2) pg MCHC 32.2 (32.2-35.5) g/dl RDW Std Deviation 45.8 (36.4-46.3) fL Plt Count 203 (182-369) K/mm3 MPV 9.9 (9.4-12.3) fl Neut % (Auto) 82.3 H (34.0-71.1) % Lymph % (Auto) 11.3 L (19.3-51.7) % [place] % (Auto) 5.3 (4.7-12.5) % Eos % (Auto) 0.5 L (0.7-5.8) Baso % (Auto) 0.4 (0.1-1.2) % Neut # (Auto) 8.58 H (1.56-6.13) K/mm3 Lymph # (Auto) 1.18 (1.18-3.74) K/mm3 [place] # (Auto) 0.55 H (0.24-0.36) K/mm3 Eos # (Auto) 0.05 (0.04-0.36) K/mm3 Baso # (Auto) 0.04 (0.01-0.08) K/mm3 Sodium 144 (136-145) mEq/L Potassium 3.6 (3.5-5.1) mEq/L Chloride 109 H (98-107) mEq/L Carbon Dioxide 23 (21-32) mEq/L Anion Gap 15.6 H (5-15) BUN 14 (7-18) mg/dL Creatinine 0.8 (0.55-1.02) mg/dL Est Cr Clr Drug Dosing 69.99 mL/min Estimated GFR (MDRD) > 60 (>60) mL/min BUN/Creatinine Ratio 17.5 (14-18) Glucose 301 H (80-115) mg/dL POC Glucose (80-115) mg/dL Hemoglobin A1c 10.00 H (4.50-6.20) % Calcium 8.9 (8.5-10.1) mg/dL Magnesium 1.7 L (1.8-2.4) mg/dl C-Reactive Protein 1.6 H* (<1.0) mg/dL TSH 3rd Generation (0.358-3.74) uIU/mL 07/23/17 07/23/17 Range/Units 07:08 12:13 WBC (3.98-10.04) K/mm3 RBC (3.98-5.22) M/mm3 Hgb (11.2-15.7) gm/L Hct (34.1-44.9) % MCV (79.4-94.8) fl MCH (25.6-32.2) pg MCHC (32.2-35.5) g/dl RDW Std Deviation (36.4-46.3) fL Plt Count (182-369) K/mm3 MPV (9.4-12.3) fl Neut % (Auto) (34.0-71.1) % Lymph % (Auto) (19.3-51.7) % [place] % (Auto) (4.7-12.5) % Eos % (Auto) (0.7-5.8) Baso % (Auto) (0.1-1.2) % Neut # (Auto) (1.56-6.13) K/mm3 Lymph # (Auto) (1.18-3.74) K/mm3 [place] # (Auto) (0.24-0.36) K/mm3 Eos # (Auto) (0.04-0.36) K/mm3 Baso # (Auto) (0.01-0.08) K/mm3 Sodium (136-145) mEq/L Potassium (3.5-5.1) mEq/L Chloride (98-107) mEq/L Carbon Dioxide (21-32) mEq/L Anion Gap (5-15) BUN (7-18) mg/dL Creatinine (0.55-1.02) mg/dL Est Cr Clr Drug Dosing mL/min Estimated GFR (MDRD) (>60) mL/min BUN/Creatinine Ratio (14-18) Glucose (80-115) mg/dL POC Glucose 311 H 393 H (80-115) mg/dL Hemoglobin A1c (4.50-6.20) % Calcium (8.5-10.1) mg/dL Magnesium (1.8-2.4) mg/dl C-Reactive Protein (<1.0) mg/dL TSH 3rd Generation (0.358-3.74) uIU/mL Med Orders - Current: Current Medications Dextrose/Water (Dextrose 50% In Water) 50 ml IVPUSH ASDIRECTED PRN PRN Reason: Hypoglycemia Duloxetine HCl (Cymbalta) 60 mg PO DAILY [facility] Last Admin: 07/23/17 12:32 Dose: 60 mg Hydromorphone HCl (Dilaudid) 0.5 mg IVPUSH Q4H PRN PRN Reason: Pain Last Admin: 07/23/17 12:34 Dose: 0.5 mg Sodium Chloride (Normal Saline) 1,000 mls @ 75 mls/hr IV ASDIRECTED [facility] Last Admin: 07/23/17 08:20 Dose: 75 mls/hr Insulin Aspart (Novolog) 0 unit SUBCUT QIDACANDBED [facility] PRN Reason: Protocol Last Admin: 07/23/17 12:33 Dose: 5 units Insulin Detemir (Levemir) 20 unit SUBCUT BEDTIME [facility] Magnesium Sulfate (Pharmacy To Dose - Magnesium Replacement) 1 dose .XX ASDIRECTED [facility] Ondansetron HCl (Zofran) 4 mg IVPUSH Q8H PRN PRN Reason: Nausea/Vomiting Last Admin: 07/22/17 23:30 Dose: 4 mg Oxycodone/Acetaminophen (Percocet 325-5 Mg) 1 tab PO Q4H PRN PRN Reason: Pain Last Admin: 07/23/17 13:53 Dose: 1 tab Potassium Chloride (Pharmacy To Dose - Potassium Replacement) 1 dose .XX ASDIRECTED [facility] Sodium Chloride (Saline Flush) 10 ml FLUSH ASDIRECTED NAOMY Stop: 07/23/17 23:00 Discontinued Medications Gadobenate Dimeglumine (Multihance) 15 ml IVPUSH ONETIME ONE Stop: 07/23/17 15:06 Lorazepam (Ativan) 1 mg IVPUSH ONETIME ONE Stop: 07/23/17 11:00 Last Admin: 07/23/17 14:17 Dose: 1 mg Lorazepam (Ativan) Confirm Administered Dose 2 mg .ROUTE .STK-MED ONE Stop: 07/23/17 14:12 Magnesium Oxide (Magnesium Oxide) 800 mg PO ONETIME ONE Stop: 07/23/17 15:01 Naloxone HCl (Narcan) 0.1 mg IVPUSH ONETIME ONE Stop: 07/21/17 22:44 Last Admin: 07/21/17 22:55 Dose: Not Given Naloxone HCl (Narcan) 0.4 mg IVPUSH ONETIME ONE Stop: 07/21/17 21:49 Last Admin: 07/21/17 21:48 Dose: 0.4 mg Naloxone HCl (Narcan) 0.4 mg IVPUSH ONETIME ONE Stop: 07/22/17 06:55 Last Admin: 07/22/17 07:57 Dose: Not Given Ondansetron HCl (Zofran) Confirm Administered Dose 4 mg .ROUTE .STK-MED ONE Stop: 07/21/17 22:26 Last Admin: 07/21/17 22:56 Dose: Not Given Ondansetron HCl (Zofran) 4 mg IVPUSH ONETIME ONE Stop: 07/21/17 22:44 Last Admin: 07/21/17 22:22 Dose: 4 mg Scopolamine (Transderm-Scop) 1.5 mg TOP ONETIME ONE Stop: 07/22/17 17:55 Last Admin: 07/22/17 18:48 Dose: 1.5 mg - Exam Quality Assessment: DVT Prophylaxis General: Alert, Oriented, Cooperative HEENT: Pupils Equal, Pupils Reactive, EOMI, Mucous Membr. Moist/Gay Neck: Supple, Trachea Midline, No JVD, No Thyromegaly Lungs: Clear to Auscultation, Normal Respiratory Effort, Decreased Breath Sounds Cardiovascular: Regular Rate, Regular Rhythm GI/Abdominal Exam: Normal Bowel Sounds, Soft, Non-Tender, No Organomegaly, No Distention, No Abnormal Bruit, No Mass, Pelvis Stable Back Exam: Normal Inspection, Decreased Range of Motion Extremities: Normal Inspection, Non-Tender, No Pedal Edema, Normal Capillary Refill, Limited Range of Motion (right wrist and knee due to pain ) Peripheral Pulses: 2+: Radial (L), Radial (R), Posterior Tibial (L), Posterior Tibial (R), Dorsalis Pedis (L), Dorsalis Pedis (R) Skin: Warm, Dry, Intact Neurological: No New Focal Deficit Psy/Mental Status: Alert, Normal Affect, Normal Mood - Problem List & Annotations (1) Overdose of drug SNOMED Code(s): 99390817 Code(s): T50.901A - POISONING BY UNSP DRUG/MEDS/BIOL SUBST, ACCIDENTAL, INIT Status: Acute Priority: High Current Visit: Yes Qualifiers: Encounter type: initial encounter Injury intent: accidental or unintentional Qualified Code(s): T50.901A - Poisoning by unspecified drugs, medicaments and biological substances, accidental (unintentional), initial encounter (2) Altered mental status, unspecified SNOMED Code(s): 752459420 Code(s): R41.82 - ALTERED MENTAL STATUS, UNSPECIFIED Status: Resolved Priority: High Current Visit: Yes Qualifiers: Altered mental status type: somnolence Qualified Code(s): R40.0 - Somnolence (3) COPD (chronic obstructive pulmonary disease) SNOMED Code(s): 10312942 Code(s): J44.9 - CHRONIC OBSTRUCTIVE PULMONARY DISEASE, UNSPECIFIED Status : Chronic Priority: Medium Current Visit: Yes Qualifiers: COPD type: emphysema Emphysema type: unspecified Qualified Code(s): J43.9 - Emphysema, unspecified (4) Fibromyalgia SNOMED Code(s): 554104317 Code(s): M79.7 - FIBROMYALGIA Status: Chronic Priority: Low Current Visit: Yes (5) Insulin dependent diabetes mellitus SNOMED Code(s): 11670828 Code(s): E11.9 - TYPE 2 DIABETES MELLITUS WITHOUT COMPLICATIONS; Z79.4 - FIBERGLASS PRODUCT TESTER (CURRENT) USE OF INSULIN Status: Chronic Priority: Medium Current Visit: Yes (6) Narcotic dependence SNOMED Code(s): 35999770 Code(s): F11.20 - OPIOID DEPENDENCE, UNCOMPLICATED Status: Chronic Priority: Low Current Visit: Yes (7) Neuropathy SNOMED Code(s): 807166025 Code(s): G62.9 - POLYNEUROPATHY, UNSPECIFIED Status: Acute Priority: High Current Visit: Yes - Problem List Review Problem List Initiated/Reviewed/Updated: Yes - My Orders Last 24 Hours: My Active Orders 07/23/17 10:41 Consult to Social Media Intern [Consult to Diabetic Nurse Specialist] [CONS] Routine 07/23/17 10:45 Magnesium Rep Pharmacy to Dose [Pharmacy to Dose - Magnesium Replacement] 1 dose .XX ASDIRECTED Potassium Rep Pharmacy to Dose [Pharmacy to Dose - Potassium Replacement] 1 dose .XX ASDIRECTED 07/23/17 13:31 Acetaminophen/oxyCODONE [Percocet 325-5 MG] 1 tab PO Q4H PRN 07/23/17 21:00 Insulin Detemir [Levemir] 20 unit SUBCUT BEDTIME 07/24/17 05:11 LIPID PANEL [CHEM] Routine - Plan Plan:: Impression: Acute: Altered mental status -Altered mental status in ED - GCS 11 -UDS positive for benzodiazepine -A&OX3 today -Reports she believes she overdosed on Lyrica -Reports she has done this in the past unintentionally -Swallow evaluation - full diet -Aspiration/seizure precautions -Neuro checks -Denies any intent to overdose, harm, or kill herself -"I was just trying to make the pain less" -Will r/o medical causes -Carotid artery ultrasound - WNL -PT/INR - WNL -TSH -WNL -Echo - ordered -MRI - ordered -Lipid panel - ordered Type II DM - insulin dependant -A1C-10.0 -Continue long acting insulin -Sliding scale per protocol -senior health educator -Crystal Attacher consult -Recommend continued diabetic care with PCP/endocrinology Chronic: Tobacco use disorder - nicotine patch Neuropathy Fibromyalgia COPD Plan: CM for discharge planning Other orders as indicated above Routine AM labs Neuro checks PT/OT Home medications as ordered CVA protocol Aspiration precautions Seizure precautions Supportive care Narcan Tobacco replacement DM mgt and education Code status: Full code
[2017-07-23] MEDS ORDERED: Sodium Chloride 0.9% 10 ML Syringe FLUSH SCH (15:15)
--- NOTE | 2017-07-23 16:08 | MR ---
MRI brain (without and with contrast) Technique: T1 sagittal; T2, T2 FLAIR, T1 and diffusion axial T2 gradient echo also obtained. T1 coronal; post gadolinium T1 axial and post gadolinium T1 coronal images were obtained through the brain. Comparison: Previous head CT study of 07/21/17. Findings: There is an area of increased signal on the long TR sequence within the posterior right occipital lobe. This correlates to questioned finding on recent head CT of 07/21/17. This area shows gyral enhancement after gadolinium administration. Enhancement does not appear to be mass like and findings could relate to previous infarct with persistent luxury reperfusion. Atypical primary or metastatic lesion still remains within the differential. No other abnormal areas of enhancement are seen within the brain parenchyma. No other areas of abnormal signal are seen within the brain parenchyma. No acute diffusion abnormalities are seen. Abnormality noted within the left posterior frontal scalp which has been stable back to head CT study from 2014 and is therefore felt to be incidental and benign. Normal signal void is seen within the major cerebral arteries within the skull base. Impression: 1. Small abnormality within the right occipital lobe involving the cortex. There is some gyral enhancement being seen of this finding after gadolinium administration. Differential includes previous infarct with persistent luxury reperfusion. Atypical primary or metastatic lesion is also within the differential. Recommend follow-up MRI in 3 months to further evaluate. 2. Skull lesion which is stable back to prior head CT study of April 2015 and therefore is felt to be benign and incidental. 3. No acute diffusion abnormalities are seen. Diagnostic code #9
[2017-07-23] MEDS: Nicotine 21 MG/24 Hr Patch TRDERM SCH (16:21)
[2017-07-23] MEDS ORDERED: Insulin Detemir 100 Units/ML 3 ML Pen SUBCUT SCH (21:00)
[2017-07-24] MEDS: Sodium Chloride 0.9% 1,000 ML IV SCH (01:16)
[2017-07-24] MEDS: Acetaminophen/oxyCODONE 325-5 MG Tab PO PRN ×3 (03:01→16:00)
[2017-07-24] MEDS ORDERED: Lisinopril 2.5 MG Tab PO SCH (09:00)
[2017-07-24] MEDS ORDERED: Insulin Aspart 100 Units/ML 3 ML Pen SUBCUT ONE (10:00)
[2017-07-24] MEDS ORDERED: guaiFENesin 600 MG Tab.ER ONE ×2 (11:06→11:07)
[2017-07-24] MEDS ORDERED: Ibuprofen 600 MG Tab ONE (11:06)
[2017-07-24] MEDS ORDERED: Benzonatate 100 MG Cap ONE (11:24)
[2017-07-24] MEDS: Insulin Aspart 100 Units/ML 3 ML Pen SUBCUT SCH ×2 (12:07→19:27)
[2017-07-24] MEDS ORDERED: Ibuprofen 600 MG Tab PO PRN (12:09)
[2017-07-24] MEDS ORDERED: Potassium Chloride 20 MEQ Tab.ER PO ONE ×2 (12:11→14:15)
[2017-07-24] MEDS ORDERED: Magnesium Sulfate/Water 2 GM in Premix Bag 1 BAG IV ONE ×2 (12:11→14:15)
--- NOTE | 2017-07-24 12:26 | PN ---
DATE OF SERVICE: 07/24/2017 CHIEF COMPLAINT: Mental status change. SUBJECTIVE: Anitra was seen this morning, resting comfortably in bed. She has complaints of pain to her legs which is chronic neuropathic pain. She has been getting Percocet and Dilaudid IV for that which is somewhat helpful. She is up and ambulatory with assistance. She, otherwise, denies complaints of shortness of breath, chest pain, abdominal or back pain. She is coughing which is somewhat productive, she is a smoker, a pack per day. She feels her cough is worse and her nose is running today. Blood sugar this morning was 173. OBJECTIVE: VITAL SIGNS: Stable. She is afebrile. HEENT: Unremarkable. Eyes PERRLA. EOMs intact. Sclerae are white. Mouth is with moist mucous membranes. NECK: Supple. No JVD noted. HEART: Regular rate and rhythm. LUNGS: Decreased throughout with rhonchi noted bilaterally. ABDOMEN: Soft, nontender. Bowel sounds are positive. EXTREMITIES: Without edema, clubbing, or cyanosis. She does have pain to her legs and her feet when I touched them today. Pedal pulses are 1+ and equal bilaterally. NEURO: She is alert and orientated x3. She asked when she can go home. LABS: From this morning, CBC with normal white blood count, hemoglobin 11.6. Basic metabolic panel with potassium of 3.3, magnesium of 1.5. Cholesterol: HDL 32, LDL 79, triglycerides 163. Echocardiogram results are returned with normal ejection fraction 60% to 65%. No valvular or diastolic dysfunction is noted. IMPRESSION: 1. Altered-mental status due to Lyrica overdose, benzodiazepines were positive on urine drug screen. She and family state she does not take that medication. 2. Type 2 diabetes, uncontrolled, A1c is 10.0. 3. Hypokalemia. 4. Hypomagnesemia. 5. Peripheral neuropathy due to uncontrolled diabetes. PLAN: Jennifer Lutz has been consulted for addiction with overdosing with Lyrica, benzodiazepine use. We are awaiting Jennifer's consult today. We will replace magnesium and potassium today and continue to follow a.m. labs. Blood sugars, we will continue sliding scale insulin and home insulin regimen chronic lower leg pain. Continue with Percocet. At this time, attempt to wean Dilaudid and IV pain medications. MMODAL /[id number]
--- NOTE | 2017-07-24 12:30 | PN ---
DATE OF SERVICE: 07/24/2017 Update: Due to Hope's cough, that was noted in prior dictation from this morning, I did order a 2-view chest x-ray this morning which was unremarkable. I placed her on Tessalon Perles 100 mg p.o. t.i.d. and Mucinex 1200 mg p.o. b.i.d., along with DuoNeb nebulizer treatments q.i.d. She also has history of COPD and does smoke 1 pack per day. MMODAL /[id number]
[2017-07-24] MEDS: Albuterol/Ipratropium 3.0-0.5 MG/3 ML Neb Soln INH SCH ×2 (12:40→14:51)
[2017-07-24] MEDS ORDERED: Magnesium Oxide 400 MG Tab PO SCH ×2 (14:15→21:00)
--- NOTE | 2017-07-24 14:16 | CR ---
Chest: Two views of the chest were obtained. Comparison: Prior chest x-ray of 07/21/17. Heart size is normal. Mild tortuosity of the thoracic aorta is seen. Slight scar is noted within the right upper lung. Lungs otherwise are clear. Bony structures shows minimal scoliosis within the spine. Impression: 1. Incidental findings. Nothing acute is appreciated. Diagnostic code #2 I agree with preliminary report issued by [facility] ([facility] preliminary report dictated on 07/24/17, 12:09 PM Central Time)
[2017-07-24] MEDS: Benzonatate 100 MG Cap PO SCH ×2 (14:20→14:21)
[2017-07-24] MEDS ORDERED: FLU Vacc QS 2017-18 (6mos UP)/PF 60 MCG/0.5 ML Syringe IM ONE (15:15)
[2017-07-24] MEDS ORDERED: Pneumococcal 13-Valent Conjugate Vaccine 0.5 ML Syringe IM ONE (15:15)
--- NOTE | 2017-07-24 16:38 | PCM.DCSUM1 ---
Discharge Summary - Hospital Course Free Text/Narrative:: 62 year old female who looks 30 years older than her age presents with mental status change. 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 Her family had a concern that she may have had a CVA, she was brought into the ED because of unresponsiveness. The evaluation in the ED revealed a GCS 11, narcan was given with some improvement of MS. Laboratory results are remarkable for presumptive positive for benzodiazepine which is not on her list of medications. Reportedly she takes above and beyond the recommend dose of Lyrica for neuropathy. BS have been elevated, but are not profoundly high; BS on presentation to the ED 205. She is hemodynamically stable, and will be admitted to MS telemetry for additional evaluation as well as treatment as indicated. - Discharge Data Discharge Date: 07/24/17 (admit date 07/22/17) Discharge Disposition: Home, Self-Care 01 Condition: Fair - Patient Summary/Data Operative Procedure(s) Performed: None Complications: None Consults: Consultations 07/22/17 07:28 Consult to Case Management [CONS] Routine Consult to Occupational Therapy [OT Evaluation and Treatment] [CONS] Routine 07/23/17 07:28 Consult to Physical Therapy [PT Evaluation and Treatment] [CONS] Routine 07/23/17 10:41 Consult to Washer Cutter [Consult to Diabetic Nurse Specialist] [CONS] Routine 07/23/17 11:00 Consult to Speech Language Pathology [DRY PLASTERER Evaluation and Treatment] [CONS] Routine 07/23/17 16:12 Consult to Dietary [Consult to Tool Maker] [CONS] Routine 07/24/17 12:39 Consult for Substance Abuse [CONS] Routine Labs Pending at D/C: None Recommended Follow-up Testing/Procedures: Patient DC instructions: Follow up with your PCP within 5-7 days of discharge Recommend Pain Managment consult and/or Neurology consult for chronic pain, leg pain/neuropathy pain Recommend stop smoking Check your blood sugars 4 times daily and record; take record with you to all appointments. Planned Operative Procedure(s) after DC: None Hospital Course: Patient was hydrated, monitored on telemetry without changes or concerns. MRI of brain was negative for acute findings, carotid US was negative for concerning plaque or stenosis and Echocardiogram was WNL with EF of 60-65%, no valvular concerns or ventricular dysfunction. A1C was 10.0, sugars were in the 200's, she was covered with home dose of levimir and SSI/novolog. She will be discharged on medium SSI dosage at meals also. Patient had consult with substance abuse but declined to see LAC. Lyrica will be discontinued on discharge. She is discharged home with family today, see DC instructions. - Patient Instructions Diet: Drink 8-10+ Glasses/Day, Diabetic Diet Activity: As Tolerated Driving: Do Not Drive Showering/Bathing: May Shower Notify Provider of: Fever, Increased Pain, Nausea and/or Vomiting - Discharge Plan Prescriptions/Med Rec: RX: Acetaminophen/oxyCODONE [Percocet 325-5 MG] 1 tab PO Q4H PRN #20 tablet PRN Reason: Pain Benzonatate [Tessalon Perles] 100 mg PO TID #30 cap guaiFENesin [Mucinex] 1,200 mg PO BID #30 tbmp.12hr RX: Insulin Aspart [NovoLOG] See Protocol SUBCUT QIDACANDBED #1 box RX: Magnesium Oxide 400 mg PO BID #60 tablet RX: Nicotine [Habitrol] 21 mg TRDERM DAILY 30 Days #30 patch Home Medications: Home Meds RX: DULoxetine HCl [Duloxetine HCl] 60 mg PO DAILY 07/21/17 [History] RX: Insulin Detemir [Levemir Flextouch] 20 units SQ BEDTIME 07/21/17 [History] RX: Lisinopril [Prinivil] 2.5 mg PO DAILY 07/21/17 [History] RX: hydrOXYzine Pamoate [Hydroxyzine Pamoate] 50 mg PO BEDTIME 07/21/17 [History ] Benzonatate [Tessalon Perles] 100 mg PO TID #30 cap 07/24/17 [Rx] RX: Acetaminophen/oxyCODONE [Percocet 325-5 MG] 1 tab PO Q4H PRN #20 tablet [Rx] RX: Insulin Aspart [NovoLOG] See Protocol SUBCUT QIDACANDBED #1 box 07/24/17 [Rx ] RX: Magnesium Oxide 400 mg PO BID #60 tablet 07/24/17 [Rx] RX: Nicotine [Habitrol] 21 mg TRDERM DAILY 30 Days #30 patch 07/24/17 [Rx] guaiFENesin [Mucinex] 1,200 mg PO BID #30 tbmp.12hr 07/24/17 [Rx] Patient Handouts: Type 2 Diabetes Mellitus, Adult, Insulin Treatment for Diabetes, Diabetes and Foot Care, Neuropathic Pain, Peripheral Neuropathy, Hyperglycemia, [id number], Chronic Pain, Finding Treatment for Addiction, Diabetic Neuropathy Forms: ED Department Discharge Referrals: PCP,None [Primary Care Provider] - - Discharge Summary/Plan Comment DC Time >30 min.: Yes (40 min) - General Info Date of Service: 07/24/17 Admission Dx/Problem (Free Text: Admission Diagnosis/Problem Admission Diagnosis/Problem Altered mental status A&O x 3, back to baseline- slow to respond to questions answered. States has constant pain in her legs. Minimal appetite. No n/v/d. Is anxious and ready for discharge today. Functional Status: Reports: Tolerating Diet, Ambulating, Urinating. Denies: New Symptoms - Review of Systems General: Reports: Weakness, Fatigue, Malaise HEENT: Reports: No Symptoms Pulmonary: Reports: No Symptoms Cardiovascular: Reports: No Symptoms Gastrointestinal: Reports: No Symptoms Genitourinary: Reports: No Symptoms Musculoskeletal: Reports: Leg Pain, Foot Pain Skin: Reports: No Symptoms Neurological: Reports: Numbness, Paresthesia, Tingling. Denies: Confusion, Dizziness, Headache Psychiatric: Reports: Other (flat affect) - Patient Data Vitals - Most Recent: Last Vital Signs Temp 99.7 F 07/23/17 23:28 Pulse 72 07/23/17 23:28 Resp 18 07/23/17 23:28 BP 107/86 07/23/17 23:28 Pulse Ox 95 07/23/17 23:28 Weight - Most Recent: 158 lb 8 oz I&O - Last 24 hours: Intake & Output 07/23/17 07/24/17 07/24/17 22:59 06:59 14:59 Intake Total 1604 Balance 1604 Lab Results - Last 24 hrs: Laboratory Results - last 24 hr 07/23/17 07/23/17 Range/Units 16:52 22:34 POC Glucose 222 H 261 H (80-115) mg/dL Med Orders - Current: Current Medications Dextrose/Water (Dextrose 50% In Water) 50 ml IVPUSH ASDIRECTED PRN PRN Reason: Hypoglycemia Duloxetine HCl (Cymbalta) 60 mg PO DAILY NAOMY Last Admin: 07/23/17 12:32 Dose: 60 mg Hydromorphone HCl (Dilaudid) 0.5 mg IVPUSH Q4H PRN PRN Reason: Pain Last Admin: 07/23/17 12:34 Dose: 0.5 mg Sodium Chloride (Normal Saline) 1,000 mls @ 75 mls/hr IV ASDIRECTED [facility] Last Admin: 07/24/17 01:16 Dose: 75 mls/hr Insulin Aspart (Novolog) 0 unit SUBCUT QIDACANDBED NAOMY PRN Reason: Protocol Last Admin: 07/24/17 12:07 Dose: Not Given Insulin Detemir (Levemir) 20 unit SUBCUT BEDTIME [facility] Last Admin: 07/23/17 22:00 Dose: 20 units Lisinopril (Prinivil) 2.5 mg PO DAILY [facility] Magnesium Sulfate (Pharmacy To Dose - Magnesium Replacement) 1 dose .XX ASDIRECTED [facility] Miscellaneous Information (Remove Patch) 1 ea TRDERM DAILY [facility] Nicotine (Habitrol) 21 mg TRDERM DAILY [facility] Last Admin: 07/23/17 16:21 Dose: 21 mg Ondansetron HCl (Zofran) 4 mg IVPUSH Q8H PRN PRN Reason: Nausea/Vomiting Last Admin: 07/22/17 23:30 Dose: 4 mg Oxycodone/Acetaminophen (Percocet 325-5 Mg) 1 tab PO Q4H PRN PRN Reason: Pain Last Admin: 07/24/17 12:25 Dose: 1 tab Potassium Chloride (Pharmacy To Dose - Potassium Replacement) 1 dose .XX ASDIRECTED [facility] Discontinued Medications Gadobenate Dimeglumine (Multihance) 15 ml IVPUSH ONETIME ONE Stop: 07/23/17 15:06 Last Admin: 07/23/17 15:32 Dose: 15 ml Lorazepam (Ativan) 1 mg IVPUSH ONETIME ONE Stop: 07/23/17 11:00 Last Admin: 07/23/17 14:17 Dose: 1 mg Lorazepam (Ativan) Confirm Administered Dose 2 mg .ROUTE .STK-MED ONE Stop: 07/23/17 14:12 Last Admin: 07/23/17 18:01 Dose: Not Given Magnesium Oxide (Magnesium Oxide) 800 mg PO ONETIME ONE Stop: 07/23/17 15:01 Last Admin: 07/23/17 16:20 Dose: 800 mg Naloxone HCl (Narcan) 0.1 mg IVPUSH ONETIME ONE Stop: 07/21/17 22:44 Last Admin: 07/21/17 22:55 Dose: Not Given Naloxone HCl (Narcan) 0.4 mg IVPUSH ONETIME ONE Stop: 07/21/17 21:49 Last Admin: 07/21/17 21:48 Dose: 0.4 mg Naloxone HCl (Narcan) 0.4 mg IVPUSH ONETIME ONE Stop: 07/22/17 06:55 Last Admin: 07/22/17 07:57 Dose: Not Given Ondansetron HCl (Zofran) Confirm Administered Dose 4 mg .ROUTE .STK-MED ONE Stop: 07/21/17 22:26 Last Admin: 07/21/17 22:56 Dose: Not Given Ondansetron HCl (Zofran) 4 mg IVPUSH ONETIME ONE Stop: 07/21/17 22:44 Last Admin: 07/21/17 22:22 Dose: 4 mg Scopolamine (Transderm-Scop) 1.5 mg TOP ONETIME ONE Stop: 07/22/17 17:55 Last Admin: 07/22/17 18:48 Dose: 1.5 mg Sodium Chloride (Saline Flush) 10 ml FLUSH ASDIRECTED [facility] Stop: 07/23/17 23:00 Last Admin: 07/23/17 15:32 Dose: 10 ml - Exam Quality Assessment: Reports: DVT Prophylaxis General: Reports: Alert, Oriented, Cooperative HEENT: Reports: Pupils Equal, EOMI, Mucous Membr. Moist/[place] Neck: Reports: Supple Lungs: Reports: Normal Respiratory Effort, Decreased Breath Sounds, Rhonchi Cardiovascular: Reports: Regular Rate, Regular Rhythm GI/Abdominal Exam: Normal Bowel Sounds, Soft, Non-Tender (Female) Exam: Deferred Rectal (Female) Exam: Deferred Neurological: Reports: No New Focal Deficit Psy/Mental Status: Reports: Alert, Other (flat affect) *Q Meaningful Use (DIS) - VTE *Q VTE Criteria *Q: - Stroke *Q Stroke Criteria *Q: - AMI *Q AMI Criteria *Q:
[2017-07-24 19:14] VITALS: BP 116/66
[2017-07-24] MEDS: Nicotine 21 MG/24 Hr Patch TRDERM SCH (19:28)
[2017-07-24] MEDS: DULoxetine 30 MG Cap PO SCH (19:28)
== END 2017-07-24 16:44 | disposition home or self-care (01) | DRG 918 ==
LOC: JD.ED 21:43 → JD.MS 07-22 00:32
PROVIDERS: ADMIT Internal Medicine Cardiovascular Disease; ATTEND Internal Medicine Cardiovascular Disease
DX: T42.4X1A Poisoning by benzodiazepines, accidental (unintentional), initial encounter (principal); F11.20 Opioid dependence, uncomplicated; F19.20 Other psychoactive substance dependence, uncomplicated; T42.6X1A Poisoning by other antiepileptic and sedative-hypnotic drugs, accidental (unintentional), initial encounter; E87.6 Hypokalemia; E83.42 Hypomagnesemia; R41.82 Altered mental status, unspecified; E11.65 Type 2 diabetes mellitus with hyperglycemia; E11.40 Type 2 diabetes mellitus with diabetic neuropathy, unspecified; Z79.4 Long term (current) use of insulin; J44.9 Chronic obstructive pulmonary disease, unspecified; F17.210 Nicotine dependence, cigarettes, uncomplicated; M79.7 Fibromyalgia; Z79.899 Other long term (current) drug therapy; E78.5 Hyperlipidemia, unspecified
CPT/HCPCS: 36415; 36600; 51798; 70450; 70450-26; 70553; 70553-26; 71020; 71020-26; 80048; 80053; 80061; 80306; 81001; 82803; 82962; 83036; 83605; 83735; 84443; 84484; 85025; 85610; 86140; 87040; 90670; 90686; 92610-GN; 93005; 93010; 93306; 93880; 93880-26; 94640; 96125-GN; 96374; 96375; 97110-GO; 97110-GP; 97116-GP; 97162-GP; 97166-GO; 97530-GO; 99284-25; 99285-25; A9270-GY; A9577; G0008; G0009; J1170; J1815-GY; J2060; J2310; J2405; J3475; J7040; J7050; P9612

== ENCOUNTER 2020-07-04 11:01 | Emergency (ER) | payer OTHER ==
[2020-07-04 11:18] VITALS: PULSE 105
[2020-07-04] MEDS ORDERED: Sodium Chloride 0.9% 10 ML Syringe FLUSH PRN (11:34)
[2020-07-04] MEDS ORDERED: cefTRIAXone 2 GM in Sodium Chloride 0.9% 100 ML IV ONE (11:36)
[2020-07-04] MEDS ORDERED: HYDROmorphone 0.5 MG/0.5 ML Syringe IVPUSH ONE (11:39)
[2020-07-04] MEDS ORDERED: Sodium Chloride 0.9% 1,000 ML IV SCH (11:45)
--- NOTE | 2020-07-04 11:55 | EDM.PDOC ---
ED HPI GENERAL MEDICAL PROBLEM - General Chief Complaint: Skin Complaint Stated Complaint: SWOLLEN LEGS/SORE ON BACK Time Seen by Provider: 07/04/20 11:20 Source of Information: Reports: Patient History Limitations: Reports: No Limitations - History of Present Illness INITIAL COMMENTS - FREE TEXT/NARRATIVE: The patient presents with sores on her buttocks and leg swelling She said this sores have been there for about 3 weeks but they are more painful. About a month ago she got sick and laid around for about a week. She then developed these sores. She has no fever but she has chills. She has no cough, congestion, runny nose, chest pain, shortness of breath, abdominal pain, nausea or vomiting. She has a history of diabetes type II and COPD. Onset: Gradual Duration: Week(s): Location: Reports: Other (sores on her buttocks) Quality: Reports: Sharp Severity: Severe Improves with: Reports: None Worsens with: Reports: None Associated Symptoms: Reports: Fever/Chills. Denies: Chest Pain, Cough, Headaches, Nausea/Vomiting, Shortness of Breath Lower Buttock Pain Score (Numeric/FACES): 10 - Related Data Allergies Allergy/AdvReac Type Severity Reaction Status Date / Time No Known Allergies Allergy Verified 07/04/20 11:18 Home Meds: Home Meds DULoxetine HCl [Duloxetine HCl] 60 mg PO DAILY 07/21/17 [History] Insulin Detemir [Levemir Flextouch] 17 units SQ BEDTIME 07/21/17 [History] Lisinopril [Prinivil] 2.5 mg PO DAILY 07/21/17 [History] Insulin Aspart [NovoLOG] See Protocol SUBCUT QIDACANDBED #1 box 07/24/17 [Rx] Aspirin 81 mg PO DAILY 07/04/20 [History] Citalopram Hydrobromide [Celexa] 40 mg PO DAILY 07/04/20 [History] Meloxicam 15 mg PO DAILY 07/04/20 [History] Pregabalin 200 mg PO TID 07/04/20 [History] traMADol [Ultram] 50 mg PO BID PRN 07/04/20 [History] Past Medical History - Past Health History Medical/Surgical History: Denies Medical/Surgical History Respiratory History: Reports: COPD Gastrointestinal History: Reports: Cholelithiasis 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 several scars to other healed skin issues. - Past Surgical History GI Surgical History: Reports: Cholecystectomy Female Surgical History: Reports: None Social & Family History - Family History Family Medical History: Unobtainable - Tobacco Use Tobacco Use Status *Q: Current Every Day Tobacco User Years of Tobacco use: 30 Packs/Tins Daily: 1 - Caffeine Use Caffeine Use: Reports: Coffee, Soda Caffeine Use Comment: unknown - Recreational Drug Use Recreational Drug Use: No ED ROS GENERAL - Review of Systems Review Of Systems: See Below Constitutional: Reports: Chills, Malaise, Weakness, Fatigue. Denies: Fever HEENT: Reports: No Symptoms Respiratory: Reports: No Symptoms Cardiovascular: Reports: No Symptoms Endocrine: Reports: No Symptoms GI/Abdominal: Reports: No Symptoms : Reports: No Symptoms Musculoskeletal: Reports: Other (sores to her buttocks) ED EXAM, SKIN/RASH Exam: See Below Exam Limited By: No Limitations General Appearance: Alert, No Apparent Distress Ears: Normal External Exam Nose: Normal Inspection Head: Atraumatic, Normocephalic Neck: Normal Inspection Respiratory/Chest: No Respiratory Distress, Lungs Clear, Normal Breath Sounds Cardiovascular: Regular Rate, Rhythm, No Edema, No Murmur GI/Abdominal: Soft, Non-Tender, No Organomegaly, No Mass Back Exam: Normal Inspection Extremities: Other (multiple deep ulcers with erythema and edema to both left and right buttocks) Course - Vital Signs Last Recorded V/S: Last Vital Signs Temp 97.7 F 07/04/20 11:15 Pulse 105 H 07/04/20 11:15 Resp 19 07/04/20 11:15 BP 114/64 07/04/20 11:15 Pulse Ox 95 07/04/20 11:15 - Orders/Labs/Meds Orders: Active Orders 24 hr Category Date Time Status Cardiac Monitoring [RC] . DIRECTED Care 07/04/20 11:34 Active Peripheral IV Care [RC] . DIRECTED Care 07/04/20 11:35 Active Abdomen Pelvis w Cont [CT] Stat Exams 07/04/20 11:38 Taken CULTURE BLOOD [BC] Stat Lab 07/04/20 12:00 Received CULTURE BLOOD [BC] Stat Lab 07/04/20 12:05 Received Potassium Chloride [KCl 10 MEQ in Water 100 ML] 10 meq Med 07/04/20 14:00 Active Premix Bag 1 bag IV Q1H Sodium Chloride 0.9% [Normal Saline] 1,000 ml Med 07/04/20 11:45 Active IV .BOLUS Sodium Chloride 0.9% [Saline Flush] Med 07/04/20 11:34 Active 10 ml FLUSH ASDIRECTED PRN Vancomycin [Vancocin] 1.5 gm Med 07/04/20 14:15 Active Sodium Chloride 0.9% [Normal Saline (AdvBag)] 250 ml IV Q24H Blood Culture x2 Reflex Set [OM.PC] Stat Oth 07/04/20 11:35 Ordered Peripheral IV Insertion Adult [OM.PC] Stat Oth 07/04/20 11:34 Ordered Medication Orders Sodium Chloride (Normal Saline) 1,000 mls @ 1,000 mls/hr IV .BOLUS NAOMY Last Admin: 07/04/20 12:01 Dose: 1,000 mls/hr Documented by: MAGALY Potassium Chloride 10 meq/ (Premix) 100 mls @ 100 mls/hr IV Q1H [facility]OMY Stop: 07/04/20 17:59 Vancomycin HCl 1.5 gm/ Sodium (Chloride) 250 mls @ 250 mls/hr IV Q24H NAOMY Sodium Chloride (Saline Flush) 10 ml FLUSH ASDIRECTED PRN PRN Reason: Keep Vein Open Last Admin: 07/04/20 12:02 Dose: 10 ml Documented by: MAGALY Labs: Laboratory Tests 07/04/20 07/04/20 07/04/20 Range/Units 12:00 12:00 12:00 WBC 10.74 H (3.98-10.04) K/mm3 RBC 3.67 L (3.98-5.22) M/mm3 Hgb 10.5 L (11.2-15.7) gm/dl Hct 30.8 L (34.1-44.9) % MCV 83.9 D (79.4-94.8) fl MCH 28.6 (25.6-32.2) pg MCHC 34.1 (32.2-35.5) g/dl RDW Std Deviation 44.7 (36.4-46.3) fL Plt Count 408 H D (182-369) K/mm3 MPV 9.6 (9.4-12.3) fl Neut % (Auto) 83.6 H (34.0-71.1) % Lymph % (Auto) 11.5 L (19.3-51.7) % [place] % (Auto) 4.3 L (4.7-12.5) % Eos % (Auto) 0.3 L (0.7-5.8) Baso % (Auto) 0.3 (0.1-1.2) % Neut # (Auto) 8.98 H (1.56-6.13) K/mm3 Lymph # (Auto) 1.24 (1.18-3.74) K/mm3 [place] # (Auto) 0.46 H (0.24-0.36) K/mm3 Eos # (Auto) 0.03 L (0.04-0.36) K/mm3 Baso # (Auto) 0.03 (0.01-0.08) K/mm3 Manual Slide Review Normal smear Sodium 128 L D (136-145) mEq/L Potassium 2.8 L (3.5-5.1) mEq/L Chloride 95 L (98-107) mEq/L Carbon Dioxide 23 (21-32) mEq/L Anion Gap 12.8 (5-15) BUN 8 (7-18) mg/dL Creatinine 1.1 H (0.55-1.02) mg/dL Est Cr Clr Drug Dosing 48.92 mL/min Estimated GFR (MDRD) 50 (>60) mL/min BUN/Creatinine Ratio 7.3 L (14-18) Glucose 452 H (80-115) mg/dL Lactic Acid 1.4 (0.4-2.0) mmol/L Calcium 8.4 L (8.5-10.1) mg/dL Total Bilirubin 0.5 (0.2-1.0) mg/dL AST 10 L (15-37) U/L ALT 11 L (14-59) U/L Alkaline Phosphatase 117 H (46-116) U/L C-Reactive Protein 17.2 H* (<1.0) mg/dL Total Protein 7.6 (6.4-8.2) g/dl Albumin 2.0 L (3.4-5.0) g/dl Globulin 5.6 gm/dL Albumin/Globulin Ratio 0.4 L (1-2) SARS-CoV-2 RNA (BEBE) (NEGATIVE) 07/04/20 Range/Units 12:47 WBC (3.98-10.04) K/mm3 RBC (3.98-5.22) M/mm3 Hgb (11.2-15.7) gm/dl Hct (34.1-44.9) % MCV (79.4-94.8) fl MCH (25.6-32.2) pg MCHC (32.2-35.5) g/dl RDW Std Deviation (36.4-46.3) fL Plt Count (182-369) K/mm3 MPV (9.4-12.3) fl Neut % (Auto) (34.0-71.1) % Lymph % (Auto) (19.3-51.7) % [place] % (Auto) (4.7-12.5) % Eos % (Auto) (0.7-5.8) Baso % (Auto) (0.1-1.2) % Neut # (Auto) (1.56-6.13) K/mm3 Lymph # (Auto) (1.18-3.74) K/mm3 [place] # (Auto) (0.24-0.36) K/mm3 Eos # (Auto) (0.04-0.36) K/mm3 Baso # (Auto) (0.01-0.08) K/mm3 Manual Slide Review Sodium (136-145) mEq/L Potassium (3.5-5.1) mEq/L Chloride (98-107) mEq/L Carbon Dioxide (21-32) mEq/L Anion Gap (5-15) BUN (7-18) mg/dL Creatinine (0.55-1.02) mg/dL Est Cr Clr Drug Dosing mL/min Estimated GFR (MDRD) (>60) mL/min BUN/Creatinine Ratio (14-18) Glucose (80-115) mg/dL Lactic Acid (0.4-2.0) mmol/L Calcium (8.5-10.1) mg/dL Total Bilirubin (0.2-1.0) mg/dL AST (15-37) U/L ALT (14-59) U/L Alkaline Phosphatase (46-116) U/L C-Reactive Protein (<1.0) mg/dL Total Protein (6.4-8.2) g/dl Albumin (3.4-5.0) g/dl Globulin gm/dL Albumin/Globulin Ratio (1-2) SARS-CoV-2 RNA (BEBE) Negative (NEGATIVE) Meds: Medications Generic Name Dose Route Start Last Admin Trade Name Freq PRN Reason Stop Dose Admin Sodium Chloride 1,000 mls @ 1,000 mls/hr 07/04/20 11:45 07/04/20 12:01 Normal Saline IV 1,000 mls/hr .BOLUS NAOMY Administration Potassium Chloride 10 meq/ 100 mls @ 100 mls/hr 07/04/20 14:00 Premix IV 07/04/20 17:59 Q1H NAOMY Vancomycin HCl 1.5 gm/ Sodium 250 mls @ 250 mls/hr 07/04/20 14:15 Chloride IV Q24H NAOMY Sodium Chloride 10 ml 07/04/20 11:34 07/04/20 12:02 Saline Flush FLUSH 10 ml ASDIRECTED PRN Administration Keep Vein Open Discontinued Medications Generic Name Dose Route Start Last Admin Trade Name Freq PRN Reason Stop Dose Admin Hydromorphone HCl 0.5 mg 07/04/20 11:39 07/04/20 12:01 Dilaudid IVPUSH 07/04/20 11:40 0.5 mg ONETIME ONE Administration Hydromorphone HCl 1 mg 07/04/20 12:45 07/04/20 12:54 Dilaudid IVPUSH 07/04/20 12:46 1 mg ONETIME ONE Administration Ceftriaxone Sodium 2 gm/ 100 mls @ 200 mls/hr 07/04/20 11:36 07/04/20 12:45 Sodium Chloride IV 07/04/20 12:05 200 mls/hr ONETIME ONE Administration Insulin Human Regular 6 unit 07/04/20 13:59 Humulin R SUBCUT 07/04/20 14:00 ONETIME ONE Iopamidol 100 ml 07/04/20 12:16 07/04/20 12:30 Isovue-300 (61%) IVPUSH 07/04/20 12:17 100 ml ONETIME ONE Administration Sodium Chloride 10 ml 07/04/20 12:16 07/04/20 12:30 Saline Flush FLUSH 07/04/20 12:17 10 ml ONETIME ONE Administration - Re-Assessments/Exams Free Text/Narrative Re-Assessment/Exam: 07/04/20 11:55 I ordered an IV NS 1L bolus, dilaudid 0.5mg IV, rocephin 2 grams IV, lactic acid, blood cultures, labs and a CT of her abdomen and pelvis. 07/04/20 14:05 Her WBC is elevated at 10.74. Her Hgb is low at 10.5. Her platelets are elevated at 408. Her sodium is low at 128. Her K is low at 2.8. I have ordered IV potassium. Her creatinine is slightly elevated at 1.1. Her glucose is elevated at 452. I have ordered 6 units of subcutaneous insulin. Her lactic acid is normal at 1.4. Her alk phos is elevated at 117. Her CRP is elevated at 17.2. Her COVID is negative. Her CT shows multiple decubitus ulcers are identified in the gluteal region. Largest is 4.6 X 3.2cm just off midline toward the right. Status post cholecystectomy with mild prominence of the common bile duct and intrahepatic bile ducts. This is likely due to prior removal of the gallbladder. Punctate nonobstructing stone within the lower pole of the left kidney. No acute intra- abdominal or intrapelvic abnormality identified. I feel she needs to be admitted. We have no beds here. I called [facility] in [place] and I talked with Dr Ahn and he accepted the patient. Departure - Departure Time of Disposition: 14:20 Disposition: DC/Tfer to Acute Hospital 02 Condition: Fair Clinical Impression: Hyponatremia, Hypokalemia Decubitus ulcers Qualifiers: Pressure injury location: buttock Pressure injury stage: stage 4 Laterality: unspecified laterality Qualified Code(s): L89.304 - Pressure ulcer of unspecified buttock, stage 4 Hyperglycemia due to type 2 diabetes mellitus Qualifiers: Diabetes mellitus care home insulin use: without rat exterminator use Qualified Code(s): E11.65 - Type 2 diabetes mellitus with hyperglycemia - Discharge Information Referrals: PCP,None [Ordering Only Provider] - Forms: ED Department Discharge Sepsis Event Note (ED) - Evaluation Sepsis Screening Result: No Definite Risk - Focused Exam Vital Signs: Vital Signs Temp Pulse Resp BP Pulse Ox 07/04/20 11:15 97.7 F 105 H 19 114/64 95 - My Orders Last 24 Hours: My Active Orders 07/04/20 11:34 Cardiac Monitoring [RC] . DIRECTED Sodium Chloride 0.9% [Saline Flush] 10 ml FLUSH ASDIRECTED PRN Peripheral IV Insertion Adult [OM.PC] Stat 07/04/20 11:35 Peripheral IV Care [RC] . DIRECTED Blood Culture x2 Reflex Set [OM.PC] Stat 07/04/20 11:38 Abdomen Pelvis w Cont [CT] Stat 07/04/20 11:45 Sodium Chloride 0.9% [Normal Saline] 1,000 ml IV .BOLUS 07/04/20 12:00 CULTURE BLOOD [BC] Stat 07/04/20 12:05 CULTURE BLOOD [BC] Stat 07/04/20 14:00 Potassium Chloride [KCl 10 MEQ in Water 100 ML] 10 meq Premix Bag 1 bag IV Q1H 07/04/20 14:15 Vancomycin [Vancocin] 1.5 gm Sodium Chloride 0.9% [Normal Saline (AdvBag)] 250 ml IV Q24H - Assessment/Plan Last 24 Hours: My Active Orders 07/04/20 11:34 Cardiac Monitoring [RC] . DIRECTED Sodium Chloride 0.9% [Saline Flush] 10 ml FLUSH ASDIRECTED PRN Peripheral IV Insertion Adult [OM.PC] Stat 07/04/20 11:35 Peripheral IV Care [RC] . DIRECTED Blood Culture x2 Reflex Set [OM.PC] Stat 07/04/20 11:38 Abdomen Pelvis w Cont [CT] Stat 07/04/20 11:45 Sodium Chloride 0.9% [Normal Saline] 1,000 ml IV .BOLUS 07/04/20 12:00 CULTURE BLOOD [BC] Stat 07/04/20 12:05 CULTURE BLOOD [BC] Stat 07/04/20 14:00 Potassium Chloride [KCl 10 MEQ in Water 100 ML] 10 meq Premix Bag 1 bag IV Q1H 07/04/20 14:15 Vancomycin [Vancocin] 1.5 gm Sodium Chloride 0.9% [Normal Saline (AdvBag)] 250 ml IV Q24H
[2020-07-04] MEDS ORDERED: Sodium Chloride 0.9% 10 ML Syringe FLUSH ONE (12:16)
[2020-07-04] MEDS ORDERED: Iopamidol 612 MG/ML 100 ML Bottle IVPUSH ONE (12:16)
[2020-07-04] MEDS ORDERED: HYDROmorphone 1 MG/ML Syringe IVPUSH ONE ×2 (12:45→14:33)
[2020-07-04] MEDS ORDERED: Insulin Regular, Human 100 Units/ML 3 ML Vial SUBCUT ONE (13:59)
[2020-07-04] MEDS ORDERED: Potassium Chloride 10 MEQ in Premix Bag 1 BAG IV SCH (14:00)
[2020-07-04] MEDS ORDERED: Vancomycin 500 MG SDV ONE (14:23)
[2020-07-04] MEDS ORDERED: Sodium Chloride 0.9% 250 ML ONE (14:23)
[2020-07-04] MEDS ORDERED: Vancomycin 1 GM SDV ONE (14:23)
[2020-07-04 15:16] VITALS: BP 97/58
--- NOTE | 2020-07-05 13:07 | CT ---
PROCEDURE INFORMATION: Exam: CT Abdomen And Pelvis With Contrast Exam date and time: 07/04/2020 12:22 PM Age: 65 years old Clinical indication: Condition or disease; Other: Multiple sores to buttocks TECHNIQUE: Imaging protocol: Computed tomography of the abdomen and pelvis with intravenous contrast. Contrast material: ISOVUE 300; Contrast volume: 195 ml; Contrast route: INTRAVENOUS (IV); COMPARISON: CR Pelvis 1V or 2V 05/04/2015 12:55 AM FINDINGS: Liver: Normal. No mass. Gallbladder and bile ducts: The gallbladder has been removed. The common bile duct is enlarged, however, this could be due to prior cholecystectomy. There is mild intrahepatic biliary ductal dilatation. This could be due to prior cholecystectomy. Pancreas: Normal. No ductal dilation. Spleen: Normal. No splenomegaly. Adrenal glands: Normal. No mass. Kidneys and ureters: Stone is present within the lower pole of the right kidney measuring 0.1 x 0.1 cm. No stones are identified on the left. No ureteral calculi are identified. Simple appearing cyst is present arising from the upper pole of the right kidney. This measures approximately 2.9 by 2.6 cm in size. No solid renal lesion identified. Stomach and bowel: Unremarkable. No obstruction. No mucosal thickening. Appendix: No evidence of appendicitis. Intraperitoneal space: Unremarkable. No free air. No significant fluid collection. Vasculature: Unremarkable. No abdominal aortic aneurysm. Lymph nodes: Unremarkable. No enlarged lymph nodes. Urinary bladder: Unremarkable as visualized. Reproductive: Unremarkable as visualized. Bones/joints: Unremarkable. No acute fracture. Soft tissues: Multiple decubitus ulcers are present in the gluteal regions bilaterally. Largest is on the right just lateral to the gluteal fold and measures approximately 4.6 x 3.2 cm. IMPRESSION: 1. Multiple decubitus ulcers are identified in the gluteal region. Largest is just off midline toward the right. 2. Status post cholecystectomy with mild prominence of the common bile duct and intrahepatic bile ducts. This is likely due to prior removal of the gallbladder. 3. Punctate nonobstructing stone within the lower pole of the left kidney. 4. No acute intra-abdominal or intrapelvic abnormality identified. COMMENTS: Consistent with the [employer]'s Incidental Findings Committee white paper (J Am Stefano Radiol 2018): Any incidental renal lesion less than 1 cm or classified as too small to characterize, or any incidental cystic renal lesion characterized as simple-appearing, is likely benign. No follow-up imaging is recommended for these lesions per consensus recommendations based on imaging criteria. Thank you for allowing us to participate in the care of your patient. Dictated and Authenticated by: Jay Mccain MD 07/04/2020 1:44 PM Central Time ([place] & [place]) [facility]
== END 2020-07-04 15:05 ==
LOC: JD.ED 11:01
DX: E87.6 Hypokalemia (principal); E11.65 Type 2 diabetes mellitus with hyperglycemia; L89.304 Pressure ulcer of unspecified buttock, stage 4; E87.1 Hypo-osmolality and hyponatremia; J44.9 Chronic obstructive pulmonary disease, unspecified; F32.9 Major depressive disorder, single episode, unspecified; E11.9 Type 2 diabetes mellitus without complications; F17.210 Nicotine dependence, cigarettes, uncomplicated; Z79.4 Long term (current) use of insulin; Z79.82 Long term (current) use of aspirin; Z79.899 Other long term (current) drug therapy; Z20.828 Contact with and (suspected) exposure to other viral communicable diseases
CPT/HCPCS: 36415; 74177; 80053; 83605; 85025; 86140; 87040; 87186; 87635; 96365; 96367; 96368; 96375; 96376; 99285; J0696; J1170; J1815; J3370; J3480; J7030; J7050; Q9967; 99284; U0002